=== PATIENT | male | born 1945 | race Caucasian/White ===

== ENCOUNTER 2024-11-10 14:09 | Emergency (ER) | payer OTHER ==
[~2024-11-10] VITALS: Ht 177.8 cm; Wt 95.3 kg
[2024-11-10] MEDS ORDERED: SODIUM CHLORIDE 0.9% 1,000 ML IV ONE (14:15)
[2024-11-10 14:39] LABS: BASO # 0.1 10*3/uL (0.0-0.1); BASO % 0.8 % (0.0-1.0); EOS # 0.1 10*3/uL (0.0-0.4); EOS % 0.8 % (1.0-4.0); HEMATOCRIT 47.2 % (42.0-52.0); MEAN CELL VOLUME 94.4 fl (80.0-94.0); MEAN CORPUSCULAR HGB 31.6 pg (27.0-31.0); MEAN CORPUSCULAR HGB CONC 33.5 g/dl (33.0-37.0); MONO # 0.7 10*3/uL (0.1-1.0); MONO % 5.1 % (3.0-9.0); NEUT # 11.2 10*3/uL (2.3-7.9); NEUT % 84.3 % (47.0-73.0); PLATELET COUNT AUTOMATED 216 10*3/uL (130-400); RED CELL DISTRI WIDTH 12.8 % (0-14.5); WHITE BLOOD COUNT 13.3 10*3/uL (4.8-10.8)
[2024-11-10] MEDS ORDERED: GABAPENTIN100 M2 PO (14:45)
[2024-11-10] MEDS ORDERED: SIMVASTATIN10 MG PO (14:46)
[2024-11-10] MEDS ORDERED: FINASTERIDE5 M1 PO (14:46)
[2024-11-10] MEDS ORDERED: DAILY VALUE1 EACH PO (14:47)
[2024-11-10] MEDS ORDERED: COLACE100 MG PO (14:47)
[2024-11-10] MEDS ORDERED: FLOMAX0.4 MG PO (14:47)
[2024-11-10] MEDS ORDERED: VALSARTAN80 MG PO (14:48)
[2024-11-10 15:05] LABS: BUN 18 mg/dl (9-23); CHLORIDE 107 mmol/L (98-107); POTASSIUM 4.3 mmol/L (3.4-5.1)
== END 2024-11-10 16:09 | disposition home or self-care (01) ==
LOC: ED 14:09
PROVIDERS: Emergency Medicine
DX: R55 Syncope and collapse (principal); R53.1 Weakness; Z88.0 Allergy status to penicillin; Z79.899 Other long term (current) drug therapy; I10 Essential (primary) hypertension; E78.5 Hyperlipidemia, unspecified